=== PATIENT | male | born 1975 | race Caucasian/White ===

== ENCOUNTER 2017-02-09 07:08 | Emergency (ER) | payer OTHER ==
[2017-02-09 07:20] VITALS: BP 139/79
--- NOTE | 2017-02-09 07:44 | ERNOTE ---
Medical Problem HPI - General Chief Complaint: General Assessment Time Seen by Provider: 02/09/17 07:25 Source: patient Exam Limitations: no limitations - Immun/Allergies/Home Medications Immunizations: IMMUNIZATION HX Immunizations Up to Date Yes History of Influenza Vaccine Yes Hx Pneumococcal Vaccination No Allergies/Adverse Reactions: Allergies Penicillins Adverse Reaction (Mild, Verified 02/09/17 07:20) RASH Home Medications: HOME MEDICATIONS Ciprofloxacin HCl [Ciloxan] 5 ml OP Q4H #1 drops 02/09/17 [Last Taken Unknown] - History of Present History Narrative: Patient started with itching in his left eye last night and then noticed drainage this morning, mild URI symptoms, no fever. His girlfriend works at the school, no known exposure to illness. He has been off drugs since rehab in October Date (Duration): 02/08/17 Review of Systems - Review of Systems Constitutional: Absent: recent illness, fever EYE: Present: see HPI, eye discharge. Absent: eye pain, vision changes ENT: Present: nose congestion, nasal drainage. Absent: ear pain, sore throat Respiratory: Present: cough. Absent: shortness of breath Cardiology: Absent: chest pain Gastrointestinal/Abdominal: Present: nausea. Absent: vomiting, diarrhea, abdominal pain Skin: Absent: rash Neurological: Absent: headache - Patient's Past Medical History Patient History - Medical: ADHD, Chronic Pain, GERD, Headache Patient History - Cardiac/Respiratory: No pertinent hx Patient History - Cancer: No Hx of Cancer Patient History - Surgical Procedures: Other Patient History - Other: None - Family History Mother Family History - Medical: History Unknown Father Family History - Medical: History Unknown - Social History Living Situations: other Abuse History: No History of abuse Psych History: No pertinent hx Smoking Status: Current every day smoker Have you smoked in the past 12 months: Yes Do you dip or chew tobacco: Yes Alcohol Use: occasionally Drug Use: cocaine, meth, other - Immunizations Immunizations Up to Date: Yes Hx Pneumococcal Vaccination: No History of Influenza Vaccine: Yes Physical Exam - Physical Exam General Appearance: Present: wd/wn, alert, no apparent distress, anxious Eye Exam: PERRL: bilateral, Sclera injection: bilateral - minimal, Other: bilateral - no drainage Ears, Nose, Throat: Present: normal ENT inspection, normal pharynx Neck: Present: normal inspection, nontender. Absent: lymphadenopathy (R), lymphadenopathy (L) Respiratory: Present: no respiratory distress, normal breath sounds, no accessory muscle use, lungs clear Cardiovascular/Chest: Present: regular rate, rhythm, no murmur Gastrointestinal/Abdominal: Present: nontender Neurological Exam: Present: alert, oriented, normal mood/affect Skin Exam: Present: normal color, warm/dry ED Progress - Vital Signs Patient's Vital Signs:: I have reviewed the patient's vital signs. Vital Signs: Vital Signs 02/09/17 07:11 Temperature 36.3 C L Pulse Rate 103 H Respiratory 15 Rate Blood Pressure 139/79 O2 Sat by Pulse 98 Oximetry - Progress/Reassessment Chief Complaint: General Assessment Departure - Departure Clinical Impression: URI (upper respiratory infection) Qualifiers: URI type: unspecified viral URI Qualified Code(s): J06.9 - Acute upper respiratory infection, unspecified; B97.89 - Other viral agents as the cause of diseases classified elsewhere Conjunctivitis Qualifiers: Conjunctivitis type: unspecified Laterality: bilateral Qualified Code(s): H10.9 - Unspecified conjunctivitis Disposition: Home self-care Condition: Good Instructions: Bacterial Conjunctivitis, [id number], Upper Respiratory Infection, Adult, [id number] Additional Instructions: if your eyes get worse fill the prescription for the antibiotic eye drops Referrals: Jeanne Valdez DO [Staff Physician] - Prescriptions: Ciprofloxacin HCl [Ciloxan] 5 ml OP Q4H #1 drops
--- OUTSIDE RECORDS SUMMARY | 2017-02-09 07:49 | XMS REPORT | Continuity of Care Document ---
:1975 Author Organization [facility] ([facility]) [place] [address] Phone [phone] Care Team Providers Name Role Phone Van Campos Primary Care Provider [phone] Source Comments This disclosure is being made pursuant to the Care Everywhere program, applicable federal and state laws, and may not contain all informaitonavailable regarding this patient.[facility] ([facility]) Active Allergies and Adverse Reactions Allergen Noted Date Severity Reactions Comments Penicillins Urticaria (Hives) Current Medications Not on file Active Problems Problem Noted Date Pain in limb 02/07/2008 Cervicalgia 02/04/2008 Pain in joint, shoulder region 10/01/2007 Pain in joint, ankle and foot 10/09/2003 Lumbago 10/09/2003 Acquired musculoskeletal deformity of other specified site 10/09/2003 Social History Tobacco Use Types Packs/Day Years Used Date Never Assessed Last Filed Vital Signs Vital Sign Reading Time Taken Blood Pressure 104/73 06/14/2008 10:15 AM CDT Pulse 65 06/14/2008 10:15 AM CDT Temperature 36 C (96.8 F) 06/14/2008 10:15 AM CDT Respiratory Rate - - Height 1.83 m (6' 0.04") 06/14/2008 10:15 AM CDT Weight 71.496 kg (157 lb 9.9 oz) 06/14/2008 10:15 AM CDT Body Mass Index 21.35 06/14/2008 10:15 AM CDT Oxygen Saturation - - Plan of Care Health Maintenance Due Date Last Done Comments Hepatitis B Vaccine (1 of 3 - Primary Series) 1975 Tdap Vaccine 1986 Lipid Disorder Screening 1993 MMR Vaccine 1993 Td Vaccine 1993 Influenza Vaccine: Seasonal (#1) 06/30/2016 Results from Last 3 Months Not on file
== END 2017-02-09 07:43 | disposition home or self-care (01) ==
LOC: ER 07:08
DX: J06.9 Acute upper respiratory infection, unspecified (principal); B97.89 Other viral agents as the cause of diseases classified elsewhere; H10.9 Unspecified conjunctivitis; Z72.0 Tobacco use

== ENCOUNTER 2017-02-16 07:49 | Emergency (ER) | payer OTHER ==
[2017-02-16 08:01] VITALS: BP 137/89
--- NOTE | 2017-02-16 08:24 | ERNOTE ---
ENT HPI Presenting Symptoms: other Time Seen by Provider: 02/16/17 08:15 Source: patient Exam Limitations: no limitations - Immun/Allergies/Home Medications Immunizations: IMMUNIZATION HX Immunizations Up to Date Yes History of Influenza Vaccine Yes Hx Pneumococcal Vaccination No Allergies/Adverse Reactions: Allergies Allergy/AdvReac Type Severity Reaction Status Date / Time Penicillins AdvReac Mild RASH Verified 02/16/17 08:01 Home Medications: HOME MEDICATIONS Ciprofloxacin HCl [Ciloxan] 5 ml OP Q4H #1 drops 02/09/17 [Last Taken Unknown] Olopatadine HCl [Patanol] 1 drop EACHEYE DAILY #1 btl 02/16/17 [Last Taken Unknown] - History of Present Illness Severity: Present: mild ENT Location: Present: eye (R), eye (L), nose Prearrival Treatment: Present: prescription meds - Was prescribed cipro eye drops 7 days ago and has used them all up. Still having some itching in is eyes Modifying Factors - Improves: Reports: nothing Modifying Factors - Worsens: Reports: nothing Associated Symptoms - ENT: Reports: nasal congestion/drainage Prior Treament: Reports: recently seen, treated by physician Review of Systems - Review of Systems Constitutional: Absent: fever, chills EYE: Present: see HPI. Absent: vision changes ENT: Present: nose congestion, nasal drainage, sore throat Respiratory: Present: cough - minor Cardiology: Present: no symptoms reported Gastrointestinal/Abdominal: Present: no symptoms reported Genitourinary: Present: no symptoms reported Musculoskeletal: Present: no symptoms reported Skin: Present: no symptoms reported Neurological: Present: no symptoms reported Endocrine: Present: no symptoms reported Hematologic/Lymphatic: Present: no symptoms reported Psych: Present: no symptoms reported - Patient's Past Medical History Patient History - Medical: ADHD, Chronic Pain, GERD, Headache Patient History - Cardiac/Respiratory: No pertinent hx Patient History - Cancer: No Hx of Cancer Patient History - Surgical Procedures: Other Patient History - Other: None - Family History Mother Family History - Medical: History Unknown Father Family History - Medical: History Unknown - Social History Living Situations: other Abuse History: No History of abuse Psych History: No pertinent hx Smoking Status: Current every day smoker Do you dip or chew tobacco: Yes Alcohol Use: occasionally Drug Use: cocaine, meth, other - Immunizations Immunizations Up to Date: Yes Hx Pneumococcal Vaccination: No History of Influenza Vaccine: Yes Physical Exam - Physical Exam General Appearance: Present: wd/wn, alert, no apparent distress Eye Exam: PERRL: bilateral, EOMI: bilateral, Sclera injection: bilateral - minimally peripherally Ears, Nose, Throat: Present: nasal congestion - mild erythema Neck: Present: normal inspection, nontender Respiratory: Present: no respiratory distress, normal breath sounds, no accessory muscle use Extremity Exam: Present: normal range of motion, no edema Neurological Exam: Present: alert, oriented, normal mood/affect Skin Exam: Present: normal color, warm/dry Lymphatic Exam: Present: no adenopathy ED Progress - Vital Signs Vital Signs: Vital Signs 02/16/17 07:55 Temperature 36.7 C Pulse Rate 107 H Respiratory 19 Rate Blood Pressure 137/89 O2 Sat by Pulse 97 Oximetry - Progress/Reassessment Chief Complaint: Eye Injury/Trauma Departure Clinical Impression: Allergic conjunctivitis Qualifiers: Laterality: bilateral Qualified Code(s): H10.13 - Acute atopic conjunctivitis, bilateral Upper respiratory tract infection Qualifiers: URI type: acute nasopharyngitis (common cold) Qualified Code(s): J00 - Acute nasopharyngitis [common cold] - Departure Disposition: Home self-care Condition: Good Instructions: Allergic Conjunctivitis, [id number], Upper Respiratory Infection, Adult, [id number] Additional Instructions: use mucinex 600 mg twice a day. Buy a nasi-med sinus rinse bottle and salt packets. Use per package directions daily Prescriptions: Olopatadine HCl [Patanol] 1 drop EACHEYE DAILY #1 btl
--- OUTSIDE RECORDS SUMMARY | 2017-02-16 08:32 | XMS REPORT | Continuity of Care Document ---
:1975 Author Organization [facility] ([facility]) [place] [address] Phone [phone] Care Team Providers Name Role Phone Van Campos Primary Care Provider [phone] Source Comments This disclosure is being made pursuant to the Care Everywhere program, applicable federal and state laws, and may not contain all informaitonavailable regarding this patient.[facility] ([facility]) Active Allergies and Adverse Reactions Allergen Noted [...]
== END 2017-02-16 08:30 | disposition home or self-care (01) ==
LOC: ER 07:49
DX: H10.13 Acute atopic conjunctivitis, bilateral (principal); J00 Acute nasopharyngitis [common cold]; Z72.0 Tobacco use

== ENCOUNTER 2017-03-09 23:25 | Emergency (ER) | payer OTHER ==
[2017-03-09 23:52] LABS: Hematocrit 41.6 % (42.0-52.0); Hemoglobin 13.8 gm/dL (13.5-18.0); Mean Corpuscular Hemoglobin 30.2 pg (27-31); Mean Corpuscular Hgb Conc 33.2 g/dl (32-36); Mean Platelet Volume 9.1 fl (6.0-9.5); Neutrophil # 6.3 K/mm3 (1.3-6.0); Neutrophil % 68.7 % (42-75.0); Platelet Count 278 K/mm3 (150-450); Red Blood Count 4.57 M/mm3 (4.7-6.0); Red Cell Distribution Width 13.2 % (11.5-14.0); White Blood Count 9.2 K/mm3 (4.0-10.5)
[2017-03-10] MEDS ORDERED: KETOROLAC TROMETHAMINE 30 MG/ML VIAL IV ONE (00:11)
[2017-03-10] MEDS ORDERED: KETOROLAC TROMETHAMINE 30 MG/ML VIAL ONE (00:11)
[2017-03-10 00:16] LABS: ALT 17 U/L (19-67); AST 29 U/L (0-48); Albumin * 3.8 gm/dl (3.4-5.0); Alkaline Phosphatase * 77 U/L (50-170); Anion Gap 15.4 mmol/L (6.8-13.8); BUN/Creatinine Ratio 10.7 (9.0-21.6); Bilirubin, Total 0.5 mg/dL (0.0-1.1); Blood Urea Nitrogen 12 mg/dL (6-23); Ca. Corrected For Albumin 8.2 mg/dL (8.4-10.2); Calcium * 8.4 mg/dL (7.9-10.9); Carbon Dioxide 25.4 mmol/L (24-32.6); Chloride 107 mmol/L (97-106); Glucose * 102 mg/dL (70-110); Potassium 3.8 mmol/L (3.4-4.6); Sodium 144 mmol/L (132-142); Total Protein 7.2 gm/dL (6.2-8.2)
[2017-03-10 00:17] LABS: Troponin I Less than 0.017 ng/ml (0.00-0.10)
--- NOTE | 2017-03-10 00:20 | ERNOTE ---
Dyspnea - General Presenting Symptoms: difficulty of breathing Time Seen by Provider: 03/09/17 23:30 Source: patient, police - Immun/Allergies/Home Medications Immunizations: IMMUNIZATION HX Immunizations Up to Date Yes History of Influenza Vaccine Yes Hx Pneumococcal Vaccination No Allergies/Adverse Reactions: Allergies Penicillins Adverse Reaction (Mild, Verified 02/16/17 08:01) RASH Home Medications: HOME MEDICATIONS Ciprofloxacin HCl [Ciloxan] 5 ml OP Q4H #1 drops 02/09/17 [Last Taken Unknown] Olopatadine HCl [Patanol] 1 drop EACHEYE DAILY #1 btl 02/16/17 [Last Taken Unknown] Nabumetone 750 mg PO BID #20 tablet 03/10/17 [Last Taken Unknown] - History of Present Illness Narrative: Pt had warrant out for his arrest. Police arrived at the house he was in and he climbed up in the attic to hide. Pt was found 30-40 minutes later hiding under the blown cellulose insulation in the attic. He now complains of shortness of breath and pain with breathing. Severity: moderate Initiating event: Reports: other - exposure to cellulose insulation dust Frequency of episodes: Reports: no prior episodes Modifying Factors - (Improves): Reports: nothing Modifying Factors (Worsens): Reports: nothing Associated Symptoms-Dyspnea: Reports: cough, wheezing Review of Systems - Narrative Narrative: Pt unwilling to answer any questions initially, only made grunting sounds. Later he relaxed and answered questions normally - Review of Systems Constitutional: Present: no symptoms reported EYE: Present: tearing ENT: Present: nose congestion Respiratory: Present: See HPI Cardiology: Present: no symptoms reported Gastrointestinal/Abdominal: Present: no symptoms reported Genitourinary: Present: no symptoms reported Musculoskeletal: Present: no symptoms reported Skin: Present: dryness - and itching Neurological: Present: no symptoms reported Endocrine: Present: no symptoms reported Hematologic/Lymphatic: Present: no symptoms reported Psych: Present: no symptoms reported - Patient's Past Medical History Patient History - Medical: ADHD, Chronic Pain, GERD, Headache Patient History - Cardiac/Respiratory: No pertinent hx Patient History - Cancer: No Hx of Cancer Patient History - Surgical Procedures: Other Patient History - Other: None - Family History Mother Family History - Medical: History Unknown Father Family History - Medical: History Unknown - Social History Living Situations: other Abuse History: No History of abuse Psych History: No pertinent hx Alcohol Use: occasionally Drug Use: cocaine, meth, other - Immunizations Immunizations Up to Date: Yes Hx Pneumococcal Vaccination: No History of Influenza Vaccine: Yes Physical Exam - Physical Exam General Appearance: Present: wd/wn, alert, mild distress, anxious, thin Neck: Present: normal inspection, nontender, supple, full range of motion Respiratory: Present: normal breath sounds, no accessory muscle use, other - coughing and trying to clear his throat intermittantly. Occasionally tries to cough and stops breathing for 10-15 seconds. I am able to talk him out of this by calming him and getting him to take a deep breath. Cardiovascular/Chest: Present: no murmur, tachycardia Gastrointestinal/Abdominal: Present: normal bowel sounds, nontender Back Exam: Present: normal inspection, normal range of motion Extremity Exam: Present: normal inspection, normal range of motion Neurological Exam: Present: alert, no motor/sensory deficits Skin Exam: Present: normal color, warm/dry ED Progress - Results and Orders Patient's Lab Results:: I have reviewed the patient's lab results. Results and Orders: Laboratory Tests 03/09/17 03/09/17 03/09/17 23:45 23:45 23:56 WBC 9.2 Hgb 13.8 Hct 41.6 L Plt Count 278 Lymphocytes % 19.7 L pCO2 32.6 L pO2 82.7 L HCO3 23.4 Total CO2 24.4 H Base Excess 0.5 ABG pH 7.47 H ABG O2 Sat (Measured) 96.8 Sodium 144 H Potassium 3.8 Chloride 107 H Carbon Dioxide 25.4 Anion Gap 15.4 H BUN 12 Creatinine 1.12 Est GFR (Non-Af Amer) 77 D Random Glucose 102 Calcium 8.4 Total Bilirubin 0.5 AST 29 ALT 17 L Alkaline Phosphatase 77 Troponin I Less than 0.017 Total Protein 7.2 Albumin 3.8 - Vital Signs Patient's Vital Signs:: I have reviewed the patient's vital signs. Vital Signs: Vital Signs 03/09/17 03/09/17 03/10/17 23:29 23:34 00:08 Temperature 36.7 C Pulse Rate 115 H 120 H 98 Respiratory 26 H 18 Rate Blood Pressure 129/81 127/78 O2 Sat by Pulse 90 93 Oximetry - EKG EKG: other - Sinus tachycardia - X-Ray X-Ray #1 X-Ray: chest Interpretation: Interp. by me X-ray Comments: poor inspiration. portable technique. No infiltrate or effusion. - Progress/Reassessment Chief Complaint: Dyspnea Progress:: Improved Progress Note-Subjective: 03/10/17 01:29 Pt has not coughed for approx an hour. Respirations even and non-labored. SaO2 high 90's on room air. Pt released to LE. Departure Clinical Impression: Pneumonitis due to inhalation of other solids and liquids - Departure Disposition: Home self-care Condition: Good Instructions: Pneumonitis Additional Instructions: Take prescription medication regularly for 3-5 days then as needed. Prescriptions: Nabumetone 750 mg PO BID #20 tablet
[2017-03-10 01:17] VITALS: BP 114/79
[2017-03-10] MEDS ORDERED: ALBUTEROL SULFATE 2.5 MG/3 ML VIAL.NEB IH ONE (01:26)
[2017-03-10] MEDS ORDERED: ALBUTEROL SULFATE 2.5 MG/0.5 ML VIAL.NEB IH ONE (01:28)
== END 2017-03-10 01:44 | disposition home or self-care (01) ==
LOC: ER 23:25
PROC: 4A033R1 Measurement of Arterial Saturation, Peripheral, Percutaneous Approach (ICD-10-PCS; principal; 2017-03-09)
DX: J69.8 Pneumonitis due to inhalation of other solids and liquids (principal)